=== PATIENT | female | born 1960 | race Caucasian/White ===

== ENCOUNTER 2017-08-20 20:24 | Emergency (ER) | payer OTHER ==
[2017-08-20 20:35] VITALS: TEMP 97.9
[2017-08-20 21:09] VITALS: BP 139/89; PULSE 63; RESP 16; O2SAT 97
--- NOTE | 2017-08-20 21:29 | C.PDOC ---
History Of Present Illness 57 year old female presents to the ED for evaluation of left-sided hip pain which began after patient was getting in/out of a car earlier today. Patient notes the pain radiates from left hip to left knee and is exacerbated by walking. Patient denies back pain, direct trauma/injury to affected area, extremity numbness/weakness, or prior history of similar symptoms. Time Seen by Provider: 08/20/17 20:58 Chief Complaint (Nursing): Hip Pain History Per: Patient History/Exam Limitations: no limitations Onset/Duration Of Symptoms: Hrs Current Symptoms Are (Timing): Still Present Additional History Per: Patient - Hip Description Of Injury: denies: Fell, Tripped, Lost Balance, Struck With Object Past Medical History Reviewed: Historical Data, Nursing Documentation, Vital Signs Vital Signs: Last Vital Signs Temp 97.9 F 08/20/17 20:31 Pulse 63 08/20/17 21:03 Resp 16 08/20/17 21:03 BP 139/89 08/20/17 21:03 Pulse Ox 97 08/21/17 19:36 - Medical History PMH: No Chronic Diseases Surgical History: No Surg Hx Family History: States: Unknown Family Hx - Social History Hx Tobacco Use: No Hx Alcohol Use: No Hx Substance Use: No - Immunization History Hx Tetanus Toxoid Vaccination: No Hx Influenza Vaccination: No Hx Pneumococcal Vaccination: No Review Of Systems Genitourinary: Negative for: Dysuria, Incontinence Musculoskeletal: Positive for: Other (left hip pain). Negative for: Back Pain Neurological: Negative for: Weakness, Incoordination Physical Exam - Physical Exam Appears: Non-toxic, No Acute Distress Skin: Normal Color, Warm, Dry Neck: Supple Back: Normal Inspection, No Vertebral Tenderness, No Paraspinal Tenderness Extremity: No Normal ROM (limited in left hip secondary to pain with range of motion ), Tenderness (to left hip on palpation ), No Calf Tenderness, Capillary Refill (less than 2 seconds ), No Deformity, No Swelling Pulses: Left Femoral: Normal (2+), Right Femoral: Normal, Left Dorsalis Pedis: Normal (2+), Right Dorsalis Pedis: Normal Neurological/Psych: Oriented x3, Normal Speech, Normal Cognition, Normal Motor, Normal Sensation Gait: Steady ED Course And Treatment O2 Sat by Pulse Oximetry: 97 (on RA) Pulse Ox Interpretation: Normal Medical Decision Making Medical Decision Making: Impression: 57 year old female with left hip pain Plan: * Left hip XR * Toradol IM * reassess and disposition Progress: left hip XR ordered and reviewed. no fx noted. Toradol IM administered. 1010 pm pt with less pain after Toradol, able to ambulate, still has mild pain in groin area, likely musculoskeletal/ groin strain. will d/c with nsaids. f/u pmd Disposition Counseled Patient/Family Regarding: Studies Performed, Diagnosis, Need For Followup, Rx Given - Disposition Referrals: Fletcher Jc MD [Staff Provider] - Disposition: HOME/ ROUTINE Disposition Time: 22:12 Condition: STABLE Additional Instructions: Take ibuprofen as directed, with food. Follow up with PMD on Tuesday. Avoid strenuous activity for a few days. Prescriptions: Ibuprofen [Motrin] 600 mg PO TID #30 tab Instructions: Groin Pain (ED) Forms: [facility] (Slovenian), General Discharge Instructions - Clinical Impression Clinical Impression: Sprain of groin - PA / [employer] / Resident Statement MD/DO has reviewed & agrees with the documentation as recorded. - Scribe Statement The provider has reviewed the documentation as recorded by the Scribe (Laverne Mathew) All medical record entries made by the Scribe were at my direction and personally dictated by me. I have reviewed the chart and agree that the record accurately reflects my personal performance of the history, physical exam, medical decision making, and the department course for this patient. I have also personally directed, reviewed, and agree with the discharge instructions and disposition.
--- NOTE | 2017-08-21 17:52 | RAD ---
PROCEDURE: Pelvis left hip 08/20/2017 HISTORY: Left hip pain. COMPARISON: None. FINDINGS: BONES: No evidence acute displaced fracture nor dislocation. Both femoral heads are appropriately located within the respective acetabula. JOINTS: No significant osteoarthritis SOFT TISSUES: Normal. OTHER FINDINGS: None. IMPRESSION: No acute fractures. If symptoms persist or occult fracture suspected clinically recommend followup CT scan or MRI.
== END 2017-08-20 22:27 | disposition home or self-care (01) ==
LOC: C.ER 20:24
DX: S39.011A Strain of muscle, fascia and tendon of abdomen, initial encounter (principal); X58.XXXA Exposure to other specified factors, initial encounter
CPT/HCPCS: 73502; 96372; 99283; J1885

== ENCOUNTER 2019-01-03 12:26 | Outpatient (CLI) | payer OTHER | END 2019-01-03 12:27 | disposition home or self-care (01) | LOC: C.RADH 12:26 | DX: N20.9 Urinary calculus, unspecified (principal) ==

== ENCOUNTER 2019-01-08 13:06 | Outpatient (CLI) | payer OTHER | END 2019-01-08 13:07 | disposition home or self-care (01) | LOC: C.USIC 13:06 | DX: N20.9 Urinary calculus, unspecified (principal) ==

== ENCOUNTER 2019-02-24 11:12 | Outpatient (CLI) | payer OTHER | END 2019-02-24 11:13 | disposition home or self-care (01) | LOC: C.LAB 11:12 | DX: N20.9 Urinary calculus, unspecified (principal); M54.5 Low back pain ==

== ENCOUNTER → 2019-02-27 | Outpatient (CLI) | payer OTHER | END | disposition home or self-care (01) | LOC: C.EKG 10:29 | DX: Z01.818 Encounter for other preprocedural examination (principal); N20.9 Urinary calculus, unspecified ==